=== PATIENT | male | born 1935 | race Caucasian/White ===

== ENCOUNTER 2022-08-01 08:20 | Outpatient (CLI) | payer OTHER, SELFPAY ==
--- NOTE | 2022-08-01 11:00 | NEURO_ITS ---
Impression: # Complains of numbness of upper and lower extremities of long duration. 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 # Superimposed mild Carpal Tunnel Syndrome. # Abnormal needle/EMG exam with decreased motor unit potentials without fibrillations and lower extremity more than upper extremity decrement. Nerve Conduction Studies Anti Sensory Summary Table Stim Site NR Peak (ms) P-T Amp (?V) Site1 Site2 Delta-P (ms) Dist (cm) Cali (m/s) Left Median Anti Sensory (2-3nd Digit) Wrist 5.4 14.0 Wrist 2-3nd Digit 5.4 14.0 26 Wrist 5.6 17.3 Wrist 2-3nd Digit 5.4 14.0 26 Right Median Anti Sensory (2-3nd Digit) Wrist 7.5 3.4 Wrist 2-3nd Digit 7.5 14.0 19 Wrist 7.6 5.5 Wrist 2-3nd Digit 7.5 14.0 19 Left Radial Anti Sensory (Base 1st Digit) NO RESPONSE Wrist NR Wrist Base 1st Digit 0.0 Right Radial Anti Sensory (Base 1st Digit) Wrist 2.0 9.9 Wrist Base 1st Digit 2.0 0.0 Left Sup Fibular Anti Sensory (Ant Lat Mall) NO 14 cm NR 14 cm Ant Lat Mall 16.0 Right Sup Fibular Anti Sensory (Ant Lat Mall) NO RESPONSE 14 cm NR 14 cm Ant Lat Mall 16.0 Left Sural Anti Sensory (Lat Mall) NO RESPONSE Calf NR Calf Lat Mall 16.0 Right Sural Anti Sensory (Lat Mall) NO RESPONSE Calf NR Calf Lat Mall 16.0 Left Ulnar Anti Sensory (5th Digit) Wrist 3.6 17.5 Wrist 5th Digit 3.6 14.0 39 Right Ulnar Anti Sensory (5th Digit) Wrist 3.7 22.5 Wrist 5th Digit 3.7 14.0 38 Motor Summary Table Stim Site NR Onset (ms) O-P Amp (mV) Site1 Site2 Delta-0 (ms) Dist (cm) Cali (m/s) Left Median Motor (Abd Poll Brev) Wrist 6.5 2.8 Elbow Wrist 6.3 30.0 48 Elbow 12.8 2.7 Right Median Motor (Abd Poll Brev) Wrist 5.0 2.4 Elbow Wrist 9.1 31.0 34 Elbow 14.1 2.3 Left Peroneal Motor (Vastus Med) NO RESPONSE Ankle NR Popit NR Right Peroneal Motor (Vastus Med) NO RESPONSE Ankle NR Popit NR Left Tibial Motor (Abd Hutton Brev) NO RESPONSE Ankle NR Knee NR Right Tibial Motor (Abd Hutton Brev) NO RESPONSE Ankle NR Knee NR Left Ulnar Motor (Abd Dig Minimi) Wrist 3.0 3.7 A Elbow Wrist 5.8 30.0 52 A Elbow 8.8 1.8 Right Ulnar Motor (Abd Dig Minimi) Wrist 3.5 7.3 A Elbow Wrist 6.2 30.0 48 A Elbow 9.7 4.6 F Wave Studies NR F-Lat (ms) L-R F-Lat (ms) Left Median (Mrkrs) (Abd Poll Brev) DISPERSED RESPONSE NR Right Median (Mrkrs) (Abd Poll Brev) DISPERSED RESPONSE NR Left Peroneal (Mrkrs) (EDB) NO RESPONSE NR Right Peroneal (Mrkrs) (EDB) NO RESPONSE NR Left Tibial (Mrkrs) (Abd Hallucis) NO RESPONSE NR Right Tibial (Mrkrs) (Abd Hallucis) NO RESPONSE NR Left Ulnar (Mrkrs) (Abd Dig Min) 34.44 0.76 Right Ulnar (Mrkrs) (Abd Dig Min) 35.20 0.76 EMG Side Muscle Nerve Root Ins Act Fibs Amp Dur Recrt Comment Right 1stDorInt Ulnar C8-T1 Nml Nml Decr >12ms Reduced Right Ext Indicis Radial (Post Int) C7-8 Nml Nml Decr >12ms Reduced Right Ext Digitorum Radial (Post Int) C7-8 Nml Nml Decr >12ms Reduced Right BrachioRad Radial C5-6 Nml Nml Decr >12ms Reduced Righ
== END 2022-08-01 08:21 | disposition home or self-care (01) ==
PROVIDERS: PCP Family Medicine; Visit Provider Physician Assistant Medical
DX: R20.2 Paresthesia of skin (principal); G56.00 Carpal tunnel syndrome, unspecified upper limb
CPT/HCPCS: 95886; 95913

== ENCOUNTER 2023-08-07 08:07 | Outpatient (CLI) | payer OTHER, SELFPAY ==
--- NOTE | 2023-08-07 08:30 | ECG_ITS ---
Test Date: 2023-08-07 08:28:34 Measurements Intervals Urich Rate: 53 P: 85 AR: 219 QRS: -47 QRSD: 100 T: 26 QT: 436 QTc: 411 Interpretive Statements SINUS BRADYCARDIA WITH FIRST DEGREE AV BLOCK WITH OCCASIONAL SUPRAVENTRICULAR PREMATURE COMPLEXES LEFT ANTERIOR FASCICULAR BLOCK [QRS AXIS <= -45, QR IN I, RS IN II] No previous ECG available for comparison Electronically Signed On 08-07-2023 12:10:49 CDT by Ricki Siu M.D.
== END 2023-08-07 08:08 | disposition home or self-care (01) ==
LOC: ANHSURGERY 08:12
PROVIDERS: PCP Physician Assistant Medical; Visit Provider Urology
DX: Z01.818 Encounter for other preprocedural examination (principal); E78.5 Hyperlipidemia, unspecified; I44.0 Atrioventricular block, first degree; I44.4 Left anterior fascicular block
CPT/HCPCS: 93005

== ENCOUNTER 2023-08-10 10:55 | Outpatient (CLI) | payer OTHER, SELFPAY ==
--- NOTE | 2023-08-10 13:45 | NEURO_ITS ---
Nerve Conduction Studies Anti Sensory Summary Table Stim Site NR Peak (ms) P-T Amp (?V) Site1 Site2 Delta-P (ms) Dist (mm) Cali (m/s) Left Radial Anti Sensory (Base 1st Digit) Wrist 2.5 13.6 Wrist Base 1st Digit 2.5 0 Right Radial Anti Sensory (Base 1st Digit) Wrist 2.8 7.3 Wrist Base 1st Digit 2.8 110 39 Left Sup Peroneal Anti Sensory (Ant Lat Mall) NO RESPONSE Calf NR Calf Ant Lat Mall 160 Right Sural Anti Sensory (Lat Mall) NO RESPONSE Calf NR Calf Lat Mall 120 Motor Summary Table Stim Site NR Onset (ms) O-P Amp (mV) Site1 Site2 Delta-0 (ms) Dist (mm) Cali (m/s) Right Fibular TA Motor (Tib Ant) Fib Head 3.5 1.1 Poplit Fib Head 2.0 80 40 Poplit 5.5 1.4 Left Median Motor (Abd Poll Brev) Wrist 6.8 4.6 Wrist Wrist 0.0 80 Elbow 12.3 4.3 Wrist Elbow 5.5 230 42 Right Median Motor (Abd Poll Brev) Wrist 10.1 2.7 Wrist Wrist 0.0 80 Elbow 14.8 2.6 Wrist Elbow 4.7 220 47 ELB/ADM 15.7 2.9 Elbow ELB/ADM 0.9 50 56 Left Peroneal Motor (Ext Dig Brev) Ankle 6.5 0.1 Ankle Ext Dig Brev 6.5 80 12 B Fib 14.3 0.1 B Fib Ankle 7.8 280 36 Popit 17.3 0.2 Popit B Fib 3.0 90 30 Right Peroneal Motor (Ext Dig Brev) NO RESPONSE Ankle NR Ankle Ext Dig Brev 70 Popit NR Popit Ankle 360 Left Tibial Motor (Abd Hutton Brev) Ankle 5.9 0.1 Ankle Ankle 0.0 100 Knee 19.4 0.1 Ankle Knee 13.5 380 28 Right Tibial Motor (Abd Hutton Brev) Ankle 5.5 0.1 Ankle Ankle 0.0 80 Knee 16.6 0.1 Ankle Knee 11.1 390 35 Left Ulnar Motor (Abd Dig Minimi) Wrist 3.3 7.0 Wrist Wrist 0.0 80 B Elbow 7.4 6.9 B Elbow Wrist 4.1 190 46 A Elbow 9.5 7.2 A Elbow B Elbow 2.1 80 38 Right Ulnar Motor (Abd Dig Minimi) Wrist 3.4 6.8 Wrist Wrist 0.0 0 B Elbow 7.6 6.5 B Elbow Wrist 4.2 220 52 A Elbow 9.1 6.3 A Elbow B Elbow 1.5 70 47 Comparison Summary Table Stim Site NR Onset (ms) Peak (ms) P-T Amp (?V) Site1 Site2 Cali (m/s) Dist (mm) Left Median/Ulnar Palm Comparison (Wrist - 8cm) Median Palm 2.6 3.1 10.8 Median Palm Wrist - 8cm 26 80 Ulnar Palm NR Ulnar Palm Wrist - 8cm 80 Right Median/Ulnar Palm Comparison (Wrist - 8cm) NO RESPONSE Median Palm NR Median Palm Wrist - 8cm 80 Ulnar Palm NR Ulnar Palm Wrist - 8cm 80 EMG Side Muscle Nerve Ins Act Fibs Psw Amp Dur Recrt Comment Right Deltoid Axillary Nml Nml Nml Nml Nml Nml Right Triceps Radial Nml Nml Nml Nml Nml Nml Right ExtCarUln Radial (Post Int) Nml Nml Nml Nml Nml Nml Right FlexPolLong Median (Ant Int) Nml Nml Nml Nml Nml Nml Right 1stDorInt Ulnar Nml Nml Nml Nml Nml Nml Right Abd Poll Brev Median Nml Nml Nml Incr >12ms +3 Right FlexDigProf Ulnar Nml Nml Nml Nml Nml Nml Left Deltoid Axillary Nml Nml Nml Nml Nml Nml Left Triceps Radial Nml Nml Nml Nml Nml Nml Left ExtCarUln Radial (Post Int) Nml Nml Nml Nml Nml Nml Left FlexPolLong Median (Ant Int) Nml Nml Nml Nml Nml Nml Left 1stDorInt Ulnar Nml Nml Nml Nml Nml Nml Left Abd Poll Long Radial (Post Int) Nml Nml Nml Incr >12ms +1 Left Abd Poll Brev Median Nml Nml Nml Incr >12ms +2 Left FlexDigProf Ulnar Nml Nml Nml Nml Nml Nml Right AntTibialis Dp Br Fibular Nml Nml 1+ Incr >12ms +1 Right GluteusMax InfGluteal Nml Nml Nml Nml Nml Nml Right VastusMed Femoral Nml Nml Nml Nml Nml Nml
== END 2023-08-10 10:56 | disposition home or self-care (01) ==
PROVIDERS: PCP Physician Assistant Medical; Visit Provider Student in an Organized Health Care Education/Training Program
DX: G62.9 Polyneuropathy, unspecified (principal); R76.8 Other specified abnormal immunological findings in serum
CPT/HCPCS: 95886; 95913

== ENCOUNTER 2023-08-16 01:05 | Day surgery (SDC) | payer OTHER, SELFPAY ==
[2023-07-30 15:38] VITALS: BMI 25.7
--- NOTE | 2023-07-30 16:23 | PC.NURSE ---
Report to the Outpatient Waiting Room, entrance under the green pavilion located off [facility], at time __7:15AM on date __08/16/23 . Planned Procedure Time: ___9:15AM . Time changes happen often and if your time is changed the preop area will call you the afternoon before. - You and your visitor will be asked to self-screen and do not enter if you have any COVID symptoms. - A mask is optional within the hospital at this time. Patients may have clear liquids (water, carbonated beverages, clear teas, apple juice) until 3 hours prior to surgery with a maximum of 20 ounces. - No food from midnight until time of surgery. Take the following medications with a SIP of water the morning of surgery: PREGABALIN DO NOT STOP ANY OF YOUR OTHER PRESCRIPTION MEDICATIONS PRIOR TO SURGERY ?EXCEPT THE FOLLOWING Medications to discontinue per physician ___HOLD CLOPIDOGREL (BLOOD THINNER) 7 DAYS PRE-OP PER DR CRUZ- LAST DOSE 08/08/23 HOLD ALL VITAMINS/SUPPLEMENTS 3 DAYS PRE-OP PER ANESTHESIA- LAST DOSE 08/12/23. Please no make-up, nail greek, hairspray, perfume, deodorant, or body powder the day of surgery. No jewelry (including any body piercings) or valuables the day of surgery, leave them at home. Please take a shower or bath the night before, or the morning of, surgery with an antibacterial soap. Wear comfortable, loose fitting clothing. - Jewelry must be removed prior to entering the operating room. Rings and piercings that are not removed may be cut off. - The hospital will not accept responsibility for valuables. - Please leave all valuables, including medications, at home the day of surgery. If you are going home after surgery, a licensed tour driver must drive you home. - NO public transportation without another adult if you receive anesthesia. - We recommend that an adult stay with you for 24 hours following discharge. - We also recommend that you do not drive, make important decision, drink alcoholic beverages, or take any drugs that were not prescribed by your health care provider for at least 24 hours after your discharge time. Follow any additional instructions given to you from your surgeon. If you or anyone in your household have experienced Covid symptoms in the past week, please notify your surgeon or the nurse liaison at the phone number below for possible testing. Telephone instructions given to ___PATIENT and asked if any additional questions and then verbalized understanding. Patient advised to call surgeon office or pre surgery nurse liaison [phone] if any additional questions.
--- NOTE | 2023-08-14 17:15 | PM.HPGS ---
History of Present Illness History of Present Illness Consent: Risks, benefits, and alternatives have been discussed and questions answered. Patient agrees to proceed with procedure. Chief complaint: right hydrocele Narrative: Daljit Raines is a 87 year old male who we have followed for several years with known BPH. Additionally, he has progressive swelling of his right hemiscrotum with an ultrasound showing a large right hydrocele. This is become uncomfortable and he now elects for right hydrocelectomy. He is aware of the risks including, but not limited to, adverse cardiopulmonary events, scrotal hematoma and recurrence of the hydrocele. Review of Systems Review of Systems: All systems reviewed & are unremarkable except as noted in HPI and below PMFSH Past Medical History Medical History Acute otitis externa of right ear Acute otitis media, right Allergies tested negative for allergies with Dr. May per patient Arthritis Cervical spondylosis Chronic inflammatory arthritis GERD (gastroesophageal reflux disease) Rheumatoid arthritis of cervical spine Seborrheic keratosis Spinal stenosis cervical and lumbar Stroke Vertigo Surgical History Surgical History Aftercare following left shoulder joint replacement surgery nov(2) Carpal tunnel syndrome on both sides Cataract Hernia Previous back surgery Family History Family History Sibling Cancer Sibling Cancer Mother Diabetes mellitus Heart disease Cerebrovascular accident Father Hypertension Cancer Social History Social History Smoking status: Never smoker Second hand tobacco smoke exposure: No Alcohol intake: current Drinks per week: 1 Substance use: never Substance use type: does not use Do You Feel Safe in your Home?: Yes Lack of Transportation: No Lack of Food: Never True Current Housing: I Have Housing Concerned About Future Housing: No Difficulty Paying Gas/Electric Bills: No Difficulty Paying for Meds: No Currently Unemployed: No Education: Grade School Difficulty w/ Childcare or Family Care: No Living arrangements: with family Additional living arrangements comments: Occupation/Education: retired Gender identity (if verbalized by the patient): Male Spiritual care concerns: No Agree to blood products: Yes Meds Home Medications and Allergies Home Medications Medication Instructions Recorded Confirmed Type cyanocobalamin (vitamin B-12) 500 500 mcg PO DAILY 07/05/20 08/06/23 History mcg tablet (B-12 DOTS) glucosamine 750 [id number] 1 tablet PO BID 07/05/20 08/06/23 History no1 644 mg-C 30 mg-mariluz 1 mg tablet (Osteo Bi-Flex Triple Strength) atorvastatin 40 mg tablet 40 mg PO DAILY #90 tabs 08/06/23 Rx clopidogrel 75 mg tablet 75 mg PO DAILY 08/06/23 08/06/23 History finasteride 5 mg tablet 5 mg PO DAILY 08/06/23 08/06/23 History naproxen sodium 220 mg tablet 220 mg PO BID PRN 08/06/23 08/06/23 History (Aleve) omeprazole 20 mg capsule,delayed 20 mg PO DAILY 08/06/23 08/06/23 History release pregabalin 25 mg capsule 25 mg PO BID #180 caps 08/06/23 08/06/23 Rx tamsulosin 0.4 mg capsule 0.4 mg PO DAILY 08/06/23 08/06/23 History Allergies Allergy/AdvReac Type Severity Reaction Status Date / Time No Known Allergies Allergy Verified 08/06/23 07:56 Exam Const: General: no acute distress Resp: Effort & Inspection: normal respiratory effort GI: Inspection: non-distended GI Palp: No abdominal tenderness and No Guarding due to palpation present (GI) Auscultation: normal bowel sounds : Scrotum: Hydrocele present and scrotal swelling Assessment and Plan Assessment and plan (1) Right hydrocele: Code(s):
[2023-08-16] VITALS (7 sets, daily range): BP systolic 121–155; BP diastolic 60–88; PULSE 46–72; RESP 10–20; TEMP 36.2–36.9; O2SAT 99–100
--- NOTE | 2023-08-16 05:58 | WPDHPUPDATE1 ---
History and Physical Update Update Date/Time: 08/16/23 05:58 History and Physical has been reviewed, including an updated exam of the patient. There are NO changes in the patient's condition. Risks, benefits, and alternatives have been discussed and questions answered. Patient agrees to proceed with procedure.
[2023-08-16] MEDS: LACTATED RINGERS 1,000 ML 30 ML IV CONT (07:30)
--- NOTE | 2023-08-16 07:56 | WPDANESEPPF ---
Anes - Initial Pre Proc Eval Procedure: Operation Date: 08/16/23 08:30 Proposed Procedures p Right Hydrocelectomy - Sharath Canada MD Date/Time: 08/16/23 07:56 Surgeon: Sharath Canada MD Pre Op Diagnosis: right hydrocele Patient Data Age: 87 Gender: M Height: 1.75 m Weight: 76.8 kg Last Vital Signs Temp 98.5 F 08/16/23 07:35 Pulse 52 L 08/16/23 07:35 Resp 16 08/16/23 07:35 BP 130/72 08/16/23 07:35 Pulse Ox 99 08/16/23 07:35 O2 Del Method Room Air 08/16/23 07:35 Allergies Allergy/AdvReac Type Severity Reaction Status Date / Time No Known Allergies Allergy Verified 08/16/23 07:32 Home Medications Medication Instructions Recorded Confirmed Type cyanocobalamin (vitamin B-12) 500 500 mcg PO DAILY 07/05/20 08/16/23 History mcg tablet (B-12 DOTS) glucosamine 750 [id number]-[id number]-cvs 1 tablet PO BID 07/05/20 08/16/23 History no1 644 mg-C 30 mg-mariluz 1 mg tablet (Osteo Bi-Flex Triple Strength) atorvastatin 40 mg tablet 40 mg PO DAILY #90 tabs 08/06/23 08/16/23 Rx clopidogrel 75 mg tablet 75 mg PO DAILY 08/06/23 08/16/23 History finasteride 5 mg tablet 5 mg PO DAILY 08/06/23 08/16/23 History naproxen sodium 220 mg tablet 220 mg PO BID PRN Pain 08/06/23 08/16/23 History (Aleve) omeprazole 20 mg capsule,delayed 20 mg PO DAILY 08/06/23 08/16/23 History release pregabalin 25 mg capsule 25 mg PO BID #180 caps 08/06/23 08/16/23 Rx tamsulosin 0.4 mg capsule 0.4 mg PO DAILY 08/06/23 08/16/23 History Patient hx anesthesia problems: none Family hx anesthesia problems: none Results Review: All pre-operative results and documents have been reviewed as part of the pre-operative evaluation. [facility] Past Medical History Medical History Acute otitis externa of right ear Acute otitis media, right Allergies tested negative for allergies with Dr. May per patient Arthritis Cervical spondylosis Chronic inflammatory arthritis GERD (gastroesophageal reflux disease) Rheumatoid arthritis of cervical spine Seborrheic keratosis Spinal stenosis cervical and lumbar Stroke Vertigo Surgical History Surgical History Aftercare following left shoulder joint replacement surgery nov(2) Carpal tunnel syndrome on both sides Cataract Hernia Previous back surgery Family History Family History Sibling Cancer Sibling Cancer Mother Diabetes mellitus Heart disease Cerebrovascular accident Father Hypertension Cancer Social History Social History Smoking status: Never smoker Second hand tobacco smoke exposure: No Alcohol intake: current Drinks per week: 1 Substance use: never Substance use type: does not use Do You Feel Safe in your Home?: Yes Lack of Transportation: No Lack of Food: Never True Current Housing: I Have Housing Concerned About Future Housing: No Difficulty Paying Gas/Electric Bills: No Difficulty Paying for Meds: No Currently Unemployed: No Education: Grade School Difficulty w/ Childcare or Family Care: No Living arrangements: with family Additional living arrangements comments: Occupation/Education: retired Gender identity (if verbalized by the patient): Male Spiritual care concerns: No Agree to blood products: Yes Anes - Eval Final PreProcedure Day of Procedure 08/16/23 07:56 Patient weight: normal Heart: regular rate and rhythm Lungs: clear to auscultation Airway: Mallampati scale and special considerations (Missing many upper teeth, none loose. Edentulous lower. ) Neurological: alert and oriented Last oral intake: >/= 8 hours ASA classification: III Emergent: no Anesthetic plan: proceed Anesthesia type and monitoring: gener
[2023-08-16] MEDS: ceFAZolin 2 GM/D5W 50 ML 2 GM/50 ML BAG IVPB (08:08)
[2023-08-16] MEDS: LIDO 1%/EPINEPHRINE/PF 1:200,000 30 ML VIAL XX (08:39)
--- NOTE | 2023-08-16 08:39 | W.PM.PROC2 ---
Procedure Note - Detailed Date of Procedure 08/16/23 Pre-op Diagnosis Right hydrocele Post-op Diagnosis Same Procedure Performed Right hydrocelectomy Surgeon Sharath Canada MD Anesthesia General Description of Procedure The patient was brought to the operative suite where he was prepped and draped in routine sterile fashion while in a supine position after the uneventful induction of a general LMA anesthetic. An incision was made in the median raphe of the scrotum and dissection was carried into the right tunica vaginalis. Clear, straw-colored fluid was drained. The testicle was examined and found to be both visibly and palpably normal. The tunica was everted in a bottle-neck fashion using a running 4-0 chromic. The testicle was restore returned to an orthotopic positioned. The dartos muscle was closed with a running 4-0 chromic and the skin was likewise closed with a running 4-0 chromic. Estimated blood loss throughout this procedure was 5cc . Patient tolerated the procedure well and was taken to the recovery room in good condition. Drains No Packing No Pathology None sent
== END 2023-08-16 10:12 | disposition home or self-care (01) ==
PROVIDERS: PCP Physician Assistant Medical; Visit Provider Urology
PROC: (CPT 55040; principal; 2023-08-16 08:30)
DX: N43.3 Hydrocele, unspecified (principal); N40.0 Benign prostatic hyperplasia without lower urinary tract symptoms; M06.88 Other specified rheumatoid arthritis, vertebrae; M47.812 Spondylosis without myelopathy or radiculopathy, cervical region; M48.02 Spinal stenosis, cervical region; M48.061 Spinal stenosis, lumbar region without neurogenic claudication; Z86.73 Personal history of transient ischemic attack (TIA), and cerebral infarction without residual deficits; Z79.02 Long term (current) use of antithrombotics/antiplatelets
CPT/HCPCS: 55060; 93005; J0690; J1100; J2405; J2704; J3010; J7120

== ENCOUNTER 2024-06-25 01:27 | Day surgery (SDC) | payer OTHER, SELFPAY ==
--- NOTE | 2024-06-06 14:16 | PC.NURSE ---
Report to the Outpatient Waiting Room, entrance under the green pavilion located off [facility], at time _9:30 AM on date _06/25/24 . Planned Procedure Time: _11:30 AM .? Time changes happen often and if your time is changed the preop area will call you the afternoon before. - You and your visitor will be asked to self-screen and do not enter if you have any COVID symptoms. Please call surgeon if you need to reschedule. - A mask is optional within the hospital at this time. NOTHING TO EAT OR DRINK 8 HOURS PRIOR TO SURGERY PER DR BOWDEN Take only the following medications with a SIP of water on the morning of surgery: ___DILTIAZEM,PREGABALIN DO NOT STOP ANY OF YOUR OTHER PRESCRIPTION MEDICATIONS PRIOR TO SURGERY EXCEPT THE FOLLOWING Hold all vitamins and supplements for 3 days per anesthesiologist.LAST DOSE 06/21/24 Medications to discontinue per physician ELIQUIS PER DR KIMBALL Please no make-up, nail tunisian, hairspray, perfume, deodorant, or body powder the day of surgery.? No jewelry (including any body piercings) or valuables the day of surgery, leave them at home.? Please take a shower or bath the night before, or the morning of, surgery with an antibacterial soap.? Wear comfortable, loose fitting clothing.? Children are encouraged to wear pajamas. - Jewelry must be removed prior to entering the operating room.? Rings and piercings that are not removed may be cut off. - The hospital will not accept responsibility for valuables.? - Please leave all valuables, including medications, at home the day of surgery. If you are going home after surgery, a licensed driver education instructor must drive you home.? - NO public transportation without another adult if you receive anesthesia. - We recommend that an adult stay with you for 24 hours following discharge. - We also recommend that you do not drive, make important decision, drink alcoholic beverages, or take any drugs that were not prescribed by your health care provider for at least 24 hours after your discharge time. For Pediatric surgeries, we recommend two adults accompany the child home. Follow any additional instructions given to you from your surgeon. Telephone instructions given to __PATIENT and asked if any additional questions and then verbalized understanding. Patient advised to call surgeon office or pre surgery nurse liaison [phone] if any additional questions.
[2024-06-06 14:34] VITALS: BMI 25.1
--- OUTSIDE RECORDS SUMMARY | 2024-06-25 01:30 | XMS_ITS | Clinical Summary ---
Author Organization [facility] Address [address] [place] [phone] Care Team Providers Care Dispensary Technician Name Role Phone Marlene Spivey Primary Care Provider [phone] Allergies No known active allergies Medications clopidogreL (PLAVIX) 75 mg tabletIndications:C erebral Thromboembolism Prevention Take 1 tablet (75 mg total) by mouth daily Active atorvastatin (LIPITOR) 40 mg tablet Take 1 tablet (40 mg total) by mouth daily Active omeprazole (PriLOSEC) 20 mg capsuleIndications: Stress Ulcer Prophylaxis Take 1 capsule (20 mg total) by mouth daily Active finasteride (PROSCAR) 5 mg tabletIndications:b enign prostatic hyperplasia with lower urinary tract sx Take 1 tablet (5 mg total) by mouth daily Active tamsulosin (FLOMAX) 0.4 mg extended release capsuleIndications: benign prostatic hyperplasia with lower urinary tract sx 1 capsule (0.4 mg total) Active amoxicillin 500 mg capsuleIndications: Prophylaxis, Medical 2,000 mg 4 capsules 1 hour prior to dental appointment 07/05/19 22 Active doxazosin (CARDURA) 4 mg tablet 4 mg daily 05/02/19 19 Active fluticasone propionate (FLONASE) 50 mcg/actuation nasal spray USE 2 SPRAYS INTO EACH NOSTRIL EVERY DAY 06/08/19 22 Active cyanocobalamin (Vitamin B-12) 500 mcg tablet 02/10/20 20 Active simvastatin (ZOCOR) 40 mg tablet Take 40 mg by mouth nightly 05/02/19 19 Active amoxicillin-clavula nan (AUGMENTIN) 875-125 mg per tablet Take 1 tablet by mouth 2 (two) times a day 10/11/19 22 Active meclizine (ANTIVERT) 25 mg tablet TAKE 1 TABLET BY MOUTH THREE TIMES A DAY NEEDED FOR DIZZINESS 10/20/19 22 Active ofloxacin (FLOXIN) 0.3 % otic solution INSTILL 10 DROP INTO EACH EAR DAILY FOR 7 DAYS 10/12/19 22 Active pregabalin (LYRICA) 25 mg capsule Take 1 capsule (25 mg total) by mouth nightly 06/22/19 23 Active Active Problems Problem Noted Date Diagnosed Date Degeneration of intervertebral disc 08/16/2021 Degenerative joint disease of hand 08/16/2021 Primary localized osteoarthrosis of shoulder reg ion 08/16/2021 Arthropathy of hand 08/16/2021 Osteoarthritis of knee 08/16/2021 Disorder of skin of trunk 08/16/2021 Failure of right total hip arthroplasty, 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 Pain in joint of right hip 04/22/2021 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 01/02/2020 Low back pain 11/05/2018 Left groin pain 07/31/2018 Cervical pain (neck) 04/02/2017 Shoulder pain, left 03/15/2017 Cerebral infarction 04/16/2014 Essential (primary) hypertension 04/16/2014 Glossopyrosis 06/12/2013 Candidiasis of mouth 05/15/2013 Immunizations Immunization Administration Dates Next Due Influenza, Quad, Adjuvantate d, Intramuscular 11/13/2019 Influenza, Quadrivalent, Hig h Dose, Preservative Free, Intrr 11/01/2020 Influenza, Trivalent, High D ose, Split, Preservative Free, Intramuscular 12/07/2018,11/16/2017,11/13/2017 Influenza, Trivalent, IM (MDV) 11/16/2016,2011 Pneumococcal Conjugate PCV 13 05/30/2018 Tdap 06/18/2018 ZOSTER Recombinant 12/09/2019,09/24/2019 Surgical History Surgery Date Site/Laterality Comments BACK SURGERY CARPAL TUNNEL RELEASE Bilateral EYE SURGERY JOINT REPLACEMENT Right right hip HERNIA REPAIR Double hernia FLUORO GUIDED INJECTION SHOULDER RIGHT 10/22/2019 Ri ght FLUORO GUIDED ASPIRATION SHOULDER LEFT 02/29/2024 Le ft Medical History Medical History Date Comments Arthritis Stroke (HCC) 2014-on plavix Sleep apnea History of transfusion Family History Medical History Relation Name Comments Cancer Brother Family history of malignant neoplasm - (Added by TW Conv) Cancer Sister Anesthesia problems Neg Hx Relation Name Status Comments Brother Sister Social History Tobacco Use Types Packs/Day Years Used Date Smoking Tobacco: Never AUDIT-C Answer Date Recorded Q1: How often do you have a drink containing alc ohol? Monthly or less 07/29/2021 Q2: How many drinks containi ng alcohol do you have on a typical day when you are drinking? 1 or 2 07/29/2021 Q3: How often do you have si x or more drinks on one occasion? Never 07/29/2021 Sex and Gender Information Value Date Recorded Sex Assigned at Not on file Legal Sex Male 10:56 AM CONVEYOR CONSOLE OPERATOR Gender Identity Not on file Sexual Orientation Not on file Obstetrics History Last Filed Vital Signs Vital Sign Reading Time Taken Comments Blood Pressure 159/89 02/29/2024 8:35 AM CONVEYOR CONSOLE OPERATOR Pulse 108 02/29/2024 8:35 AM CONVEYOR CONSOLE OPERATOR Temperature 36.7 C (98.1 F) 02/29/2024 8:35 AM CONVEYOR CONSOLE OPERATOR Respiratory Rate 16 02/29/2024 8:35 AM CONVEYOR CONSOLE OPERATOR Oxygen Saturation 97% 02/29/2024 8:35 AM CONVEYOR CONSOLE OPERATOR Inhaled Oxygen Concentration - - Weight 79.4 kg (175 lb) 02/11/2024 11:33 AM CONVEYOR CONSOLE OPERATOR Height 175.3 cm (5' 9 ) 02/11/2024 11:33 AM CONVEYOR CONSOLE OPERATOR Body Mass Index 25.84 02/11/2024 11:33 AM CONVEYOR CONSOLE OPERATOR Plan of Treatment Health Maintenance Due Date Last Done Comments Depression Screening 1935 Hepatitis B Screening 1953 Well Visit 65+ 2001 Pneumococcal vaccine 65+ (2 of 2 - PPSV23) 05/31/2019 05/30/2018 Fall Risk Assessment 07/31/2022 07/31/2021 Covid-19 Vaccine ( - 2023-2 5 season) 2023 12/17/2020, 04/27/2020, 03/25/2020 Influenza Vaccine (Season Ended) 2024 11/01/2020, 11/13/2019, 12/07/2018, Additional history exists DTaP/Tdap/Td Vaccine (2 - Td or Tdap) 06/18/2028 06/18/2018 Zoster Vaccine Completed 12/09/2019, 09/24/2019 Medical Devices Implanted Type Area Pastry Cook Device Identifier Shelf Expiration Date Model / Serial / Lot Lens Lens Bilater al: Eye Other - See Comments- [id number] Implanted:07/06 (Quantity not on file) Other - see comments Right: Hip [employer] 46mm Modular Dual Mobility Primary Hip F Liner Acetabular Cocr [id number] - Sna - [id number] Implanted:Qty: 1 on 07/29/2021 by Arturo Brown MD at [facility] Other - see comments Right: Hip [employer] [id number] 03/21/2026 [id number] / NA / [id number] Description:Implant pause pe rformed Synthes 1.7mm 750mm Crimp Cable Orthopedic Titanium Cocr Sterile Cervical 611.105.01s - Sna - [id number] Implanted:Qty: 1 on 07/29/2021 by Arturo Brown MD at [facility] Other - see comments Right: Hip Synthes I 11/18/2024 611.105. 01S / NA / [id number] Description:Implant pause pe rformed [employer] [place] 2mm Set Hip Cable/Sleeve Orthopedic Vitallium 6704-0-520 - Sna - [id number] Implanted:Qty: 1 on 07/29/2021 by Arturo Brown MD at [facility] Other - see comments Right: Hip [employer] [id number] 05/20/2025 6704-0-5 20 / NA / [id number] Description:Implant pause pe rformed [employer] Corail 210mm 43.2mm Revision Hip 135d 16 High Offset Trapezoid [id number] - Sna - [id number] Implanted:Qty: 1 on 07/29/2021 by Arturo Brown MD at [facility] Other - see comments Right: Hip [employer] [id number] 07/19/2024 [id number] / NA / [id number] Description:Implant pause pe rformed [employer] Liner Acetabular Hip Adm Mdm X3 28/52mm Polyethylene 0 Degree 7236-2-852 - Sna - [id number] Implanted:Qty: 1 on 07/29/2021 by Arturo Brown MD at [facility] Other - see comments Right: Hip [employer] [id number] 11/04/2025 7236-2-8 52 / NA / [id number] Description:Implant pause pe rformed Explanted Type Area Pastry Cook Device Identifier Shelf Expiration Date Model / Serial / Lot [employer] Femoral Stem Explanted:Qty : 1 on 07/29/2021 by Arturo Brown MD at [facility] Other - see comments Right: Hip [employer] / NA / Description:Pre-existing imp lant from 2009 from another facility and surgeon. Now removed for revision. Implant disposed of. [employer] Liner Explanted:Qty : 1 on 07/29/2021 at [facility] Right: Hip [employer] / NA / Description:Pre-existing imp lant from 2009 from another facility and surgeon. Now removed for revision. Implant disposed of. Michelle Head Explanted:Qty : 1 on 07/29/2021 at [facility] Right: Hip [employer] / NA / Description:Pre-existing imp lant from 2009 from another facility and surgeon. Now removed for revision. Implant disposed of. [place] [address] [facility] Advance Directives For more information, please contact: [phone] * Full Code (Latest Code Status on File) Date Activated Date Inactivated Comments 07/29/2021 11:45 AM 07/31/2021 4:09 PM * Full Code Date Activated Date Inactivated Comments 07/27/2021 4:13 AM 07/29/2021 11:45 AM Healthcare Agents on File Name Relationship Healthcare Agent Relationship Communication Gretchen Raines Spouse Health Care Agent Karmen Cordoba Daughter First Alternate Health Care Agent Care Teams Dispensary Technician Relationship Specialty Start Date End Date Marlene Spivey PA [address] [place] [id number] PCP - General Physician Waiter/Waitress First Class 01/14/24
--- OUTSIDE RECORDS SUMMARY | 2024-06-25 01:30 | XMS_ITS | Clinical Summary ---
Author Organization [facility] Address [address] [place] [address] Care Team Providers Care Private Branch Exchange Repairer Name Role Phone Marlene Spivey Primary Care Provider [phone] Allergies No known active allergies Medications atorvastatin 40 MG tablet Take 1 tablet (40 mg total) by mouth daily. 3 9 Active finasteride 5 MG tablet 1 tablet (5 mg total) daily. 1 9 Active omeprazole 20 MG capsule Take 1 capsule (20 mg total) by mouth. 6 Active pregabalin (LYRICA) 25 MG capsule Take 1 capsule (25 mg total) by mouth 2 (two) times daily. Active tamsulosin (FLOMAX) 0.4 MG Cap Take 1 capsule (0.4 mg total) by mouth daily. Active vitamin B-12 (CYANOCOBALAMIN ) 500 MCG tablet Take 1 tablet (500 mcg total) by mouth daily. Active TIADYLT ER 120 MG 24 hr capsule Take 1 capsule (120 mg total) by mouth daily. 4 Active clopidogrel (PLAVIX) 75 MG tablet Take 1 tablet (75 mg total) by mouth daily. 30 tablet 2 5 Active apixaban (ELIQUIS) 5 MG tablet Take 1 tablet (5 mg total) by mouth 2 (two) times daily. 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 - Today 04/28/2024 11:15 AM CDT Telephone [facility], [address] [address] Amadeo Moreno MD Holter Monitor 04/21/2024 10:45 AM VOCAL MUSIC INSTRUCTOR Office Visit [facility], [address] [address] Amadeo Moreno MD Atrial Flutter (Follow up) 04/21/2024 Travel from Last 3 Months Social History Tobacco Use Types Packs/Day Years Used Date Smoking Tobacco: Former Smokeless Tobacco: Never [facility] PPTVities Answer Date Recorded In the past 12 months has [employer], gas, oil, or water [employer] threatened to shut off services in your home? No 01/24/2024 Humiliation, Afraid, Rape, and Kick questionnair e Answer Date Recorded Within the last year, have y ou been afraid of your partner or ex-partner? No 01/24/2024 Within the last year, have y ou been humiliated or emotionally abused in other ways by your partner or ex-partner? No Within the last year, have y ou been kicked, hit, slapped, or otherwise physically hurt by your partner or ex-partner? No 01/24/2024 Within the last year, have y ou been raped or forced to have any kind of sexual activity by your partner or ex-partner? No 01/24/2024 Overall Financial Resource Strain (CARDIA) Answe r Date Recorded How hard is it for you to pa y for the very basics like food, housing, medical care, and heating? Not hard at all 01/24/2024 Hunger Vital Sign Answer Date Recorded Within the past 12 months, y ou worried that your food would run out before you got the money to buy more. Never true 01/24/20 24 Within the past 12 months, t he food you bought just didn't last and you didn't have money to get more. Never true 01/24/2024 PRAPARE - Transportation Answer Date Re corded In the past 12 months, has l ack of transportation kept you from medical appointments or from getting medications? No 06/2023 In the past 12 months, has l ack of transportation kept you from meetings, work, or from getting things needed for daily living? No 01/24/2024 Housing Stability Vital Sign Answer Bandar e Recorded In the last 12 months, was t here a time when you were not able to pay the mortgage or rent on time? No 01/24/2024 In the past 12 months, how m any times have you moved where you were living? 1 01/24/2024 At any time in the past 12 m [facility], were you homeless or living in a residential (including now)? No 01/24/2024 Sex and Gender Information Value Date Recorded Sex Assigned at Male 03/20/2024 11:11 AM VOCAL MUSIC INSTRUCTOR Legal Sex Male 7:08 PM CDT Gender Identity Not on file Sexual Orientation Not on file Last Filed Vital Signs Vital Sign Reading Time Taken Comments Blood Pressure 144/80 04/21/2024 10:41 AM VOCAL MUSIC INSTRUCTOR Pulse 65 04/21/2024 10:41 AM VOCAL MUSIC INSTRUCTOR Temperature 36.4 C (97.6 F) 03/20/2024 4:45 PM VOCAL MUSIC INSTRUCTOR Respiratory Rate 23 03/20/2024 6:55 PM VOCAL MUSIC INSTRUCTOR Oxygen Saturation 98% 04/21/2024 10:41 AM VOCAL MUSIC INSTRUCTOR Inhaled Oxygen Concentration - - Weight 80.3 kg (177 lb) 04/21/2024 10:41 AM VOCAL MUSIC INSTRUCTOR Height 175.3 cm (5' 9 ) 04/21/2024 10:41 AM VOCAL MUSIC INSTRUCTOR Body Mass Index 26.14 04/21/2024 10:41 AM VOCAL MUSIC INSTRUCTOR Plan of Treatment Upcoming Encounters Date Type Department Care Team (Late st Contact Info) Description 07/31/2024 9:15 AM CDT Office Visit [facility] [address] [place] [address] Radha Baum FNP [address] [facility] [address] [place] [address] 11/05/2024 11:15 AM CDT Office Visit [facility] [address] Amadeo Moreno MD [facility] [address] [place], [place] [id number] Health Maintenance Due Date Last Done Comments Annual Medicare Wellness Visit 2001 RSV Immunization or 60+ Years (1 - 1-dose 75+ series) 10/09/2011 Pneumococcal Vaccine: 50+ Years (2 of 2 - PPSV23) 07/25/2018 05/30/2018 COVID-19 Vaccine ( - 2023-2 5 season) 2023 PHQ-2 (Physician [place]) 02/20/2024 DTaP, Tdap and Td Vaccines ( 2 - Td or Tdap) 06/18/2028 06/18/2018 Zoster Vaccines Completed 12/09/2019, 09/24/2019 Meningococcal B Vaccine Aged Out No l onger eligible based on patient's age to complete this topic Meningococcal Vaccine Aged Out No yovani fede eligible based on patient's age to complete this topic RSV Immunizations Under 20 Months Aged Out No longer eligible b ased on patient's age to complete this topic Procedures Procedure Name Priority Date/Time Associated Diagnosis Comments MOBILE CONTINUOUS TELEMETRY Routine 06/04/2024 2:11 PM CDT Typical atrial flutter ([facility] HHS/HCC) ELECTROCARDIOGRAM (NON MIDMARK ACQUIRED) Routine 04/21/2024 10:49 AM VOCAL MUSIC INSTRUCTOR Typical atrial flutter ([facility] HHS/HCC) from Last 3 Months Results * CLINIC - [address] [facility] - Today (06/04/2024 2:11 PM CDT) Narrative [facility] - 06/04/2024 2:11 PM CDT [facility] [place] [place] [address] MORNING NEWS PRODUCER REPORT PATIENT NAME: Kamar Diallo : 1935 PCP: CLAU SHEIKH INTERPRETING PHARMACY INFORMATICS MANAGER: Amadeo Moreno MD INDICATION: Typical atrial flutter. Baseline Rhythm * The baseline rhythm was First Degree AV Block + Sinus Rhythm with heart rates ranged between 45 and 144 beats per minute, with average rate of 63 beats per minute. A-V Conduction * No Second Degree AV Block Type II. * No Third Degree AV Block. * No Pauses. Supraventricular Arrhythmia * There were 69,712 Supraventricular Ectopic beats with a burden of 3%. * 8 Supraventricular Tachycardia events - the longest episode was 10.2s on 05/21 04:45, and the fastest episode was 158 BPM on 05/12 05:25. Ventricular Arrhythmia * There were 2,762 Ventricular Ectopic beats with a burden of <1%. * No Ventricular Tachycardia. Atrial Fibrillation * No Atrial Fibrillation. Patient Triggered Events * 1 patient triggered events, no symptoms were specified. SUMMARY: No AF or flutter seen. Okay to stop anticoagulation. us Amadeo Moreno MD CV VASCULAR ORDERABLES Final Res ult [facility] * ELECTROCARDIOGRAM (04/21/2024 10:49 AM VOCAL MUSIC INSTRUCTOR) 04/21/2024 10:4 9 AM VOCAL MUSIC INSTRUCTOR Narrative [facility] - 04/22/2024 10:17 PM [facility], [facility] Test Date: 2024-04-21 Pat Name: KAMAR DIALLO Department: 112 Room: Gender: Male Retail Personal Banker: : 1935 Requested By: AMADEO MORENO Order Number: [id number] Reading MD: Jordy Richardson Measurements Intervals [place] Rate: 57 P: -80 DE: 170 QRS: -65 QRSD: 94 T: -7 QT: 424 QTc: 413 Interpretive Statements SINUS BRADYCARDIA LEFT AXIS DEVIATION Since prior tracing, sinus bradycardia now present L MUSIC INSTRUCTOR Procedure Note Jordy Richardson MD - 04/22/2024 Brynn Mullins [facility] Test Date: 2024-04-21 Pat Name: KAMAR DIALLO Department: 112 Room: Gender: Male Retail Personal Banker: : 1935 Requested By: AMADEO MORENO Order Number: [id number] Reading MD: Jordy Richardson Measurements Intervals [place] Rate: 57 P: -80 DE: 170 QRS: -65 QRSD: 94 T: -7 QT: 424 QTc: 413 Interpretive Statements SINUS BRADYCARDIA LEFT AXIS DEVIATION Since prior tracing, sinus bradycardia now present L MUSIC INSTRUCTOR us Amadeo Moreno MD PROCEDURES-ORDERABLE NO CHARGE F inal Result [facility] from Last 3 Months Insurance Advance Directives * Full Code (Latest Code Status on File) Date Activated Date Inactivated Comments 03/20/2024 4:51 PM 03/20/2024 11:44 PM * Full Code Date Activated Date Inactivated Comments 01/24/2024 7:08 PM 01/27/2024 2:26 PM Care Teams Private Branch Exchange Repairer Relationship Specialty Start Date End Date Marlene Spivey PA [address] [place] [id number] PCP - General PHYSICIAN LABOR EXPEDITER 06/21/23
--- OUTSIDE RECORDS SUMMARY | 2024-06-25 01:30 | XMS_ITS | Encounter Summary ---
Author Organization [facility] Address [address] [place] [address] Care Team Providers Care Sketch Artist Name Role Phone Tejinder Dodd MD Primary Care Provider Unava Armida Manning DO Primary Care Provider [phone] Marlene Spivey Primary Care Provider [phone] Encounter Details Date Type Department Care Team (Late st Contact Info) Description 12/17/2015 Abstract [facility] CONVERSION [address] [place] [address] , Generic ConversionMD Social History Tobacco Use Types Packs/Day Years Used Date Smoking Tobacco: Never Assessed Sex and Gender Information Value Date Recorded Sex Assigned at Male 03/20/2024 11:11 AM HEALTH AID Legal Sex Male 7:08 PM CDT Gender Identity Not on file Sexual Orientation Not on file documented as of this encounter Plan of Treatment Upcoming Encounters Date Type Department Care Team (Late Contact Info) Description 07/31/2024 9:15 AM CDT Office Visit [facility] [address] [place] [address] Radha Baum FNP [address] [place] [address] [address] [place] [address] 11/05/2024 11:15 AM CDT Office Visit [facility] [address] [place] [phone] Marcelle Moreno MD [address] [place] [address] documented as of this encounter Visit Diagnoses Not on filedocumented in this encounter Additional Health Concerns Infection Onset Date Last Indicated Resolved Time COVID-19 Rule Out 12/03/2023 12/03/2023 12/03/2023 8:37 AM CDT documented as of this encounter Care Teams Sketch Artist Relationship Specialty Start Date End Date Tejinder Dodd MD PCP - General INTERNAL MEDICINE 07/31/18 04/25/21 Armida Zabala DO PCP - General FAMILY PRACTICE 04/26/21 06/20/23 Marlene Spivey PA [facility] [place] [address] PCP - General PHYSICIAN CLOTH FINISHING RANGE OPERATOR 06/21/23 documented as of this encounter
--- OUTSIDE RECORDS SUMMARY | 2024-06-25 01:30 | XMS_ITS | Encounter Summary ---
Author Organization [facility] Address [address] [place] [address] Care Team Providers Care Textile Converter Name Role Phone Tejinder Dodd MD Primary Care Provider Unava Armida Manning DO Primary Care Provider [phone] Marlene Spivey Primary Care Provider [phone] Encounter Details Date Type Department Care Team (Late st Contact Info) Description 04/02/2013 Abstract [facility] CONVERSION [address] [place] [address] , Generic ConversionMD Social History Tobacco Use Types Packs/Day Years Used Date Smoking Tobacco: Never Assessed Sex and Gender Information Value Date Recorded Sex Assigned at Male 03/20/2024 11:11 AM HEALTH CAREERS INSTRUCTOR Legal Sex Male 7:08 PM CDT Gender Identity Not on file Sexual Orientation Not on file documented as of this encounter Plan of Treatment Upcoming Encounters Date Type Department Care Team (Late st Contact Info) Description 07/31/2024 9:15 AM CDT Office Visit [facility] [address] [place] [address] Radha Baum FNP [address] [place] [address] [address] [place] [address] 11/05/2024 11:15 AM CDT Office Visit [facility] [address] [place] [phone] Marcelle Moreno MD [address] [place] [address] documented as of this encounter Visit Diagnoses Not on filedocumented in this encounter Additional Health Concerns Infection Onset Date Last Indicated Resolved Time COVID-19 Rule Out 12/03/2023 12/03/2023 12/03/2023 8:37 AM CDT documented as of this encounter Care Teams Textile Converter Relationship Specialty Start Date End Date Tejinder Dodd MD PCP - General INTERNAL MEDICINE 07/31/18 04/25/21 Armida Zabala DO PCP - General FAMILY PRACTICE 04/26/21 06/20/23 Marlene Spivey PA [facility] [place] [address] PCP - General PHYSICIAN CLINICAL DIETICIAN 06/21/23 documented as of this encounter
--- OUTSIDE RECORDS SUMMARY | 2024-06-25 01:30 | XMS_ITS | Referral Summary ---
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 Gender Identity Not on file Sexual Orientation Not on file Last Filed Vital Signs Vital Sign Reading Time Taken Comments Blood Pressure 159/89 02/29/2024 8:35 AM PERINATAL EDUCATOR Pulse 108 02/29/2024 8:35 AM PERINATAL EDUCATOR Temperature 36.7 C (98.1 F) 02/29/2024 8:35 AM PERINATAL EDUCATOR Respiratory Rate 16 02/29/2024 8:35 AM PERINATAL EDUCATOR Oxygen Saturation 97% 02/29/2024 8:35 AM PERINATAL EDUCATOR Inhaled Oxygen Concentration - - Weight 79.4 kg (175 lb) 02/11/2024 11:33 AM PERINATAL EDUCATOR Height 175.3 cm (5' 9 ) 02/11/2024 11:33 AM PERINATAL EDUCATOR Body Mass Index 25.84 02/11/2024 11:33 AM PERINATAL EDUCATOR Plan of Treatment Not on file Medical Devices Implanted Type Area Dialysis Equipment Technician Device Identifier Shelf Expiration Date Model / Serial / Lot Lens Lens Bilater al: Eye Other - See Comments- [id number] Implanted:07/06 (Quantity not on file) Other - see comments Right: Hip [employer] 46mm Modular Dual Mobility Primary Hip F Liner Acetabular Cocr [id number] - Sna - [id number] Implanted:Qty: 1 on 07/29/2021 by Arturo Brown MD at [facility] Other - see comments Right: Hip [employer] [id number] 03/21/2026 [id number] / NA / [id number] Description:Implant pause pe rformed Synthes 1.7mm 750mm Crimp Cable Orthopedic Titanium Cocr Sterile Cervical 611.105.01s - Sna - [id number] Implanted:Qty: 1 on 07/29/2021 by Arturo Brown MD at [facility] Other - see comments Right: Hip Synthes I 11/18/2024 611.105. 01S / NA / [id number] Description:Implant pause pe rformed [employer] Jessica 2mm Set Hip Cable/Sleeve Orthopedic Vitallium 6704-0-520 - Sna - [id number] Implanted:Qty: 1 on 07/29/2021 by Arturo Borwn MD at [facility] Other - see comments Right: Hip [employer] [id number] 05/20/2025 6704-0-5 20 / NA / [id number] Description:Implant pause pe rformed [employer] Corail 210mm 43.2mm Revision Hip 135d 16 High Offset Trapezoid [id number] - Sna - [id number] Implanted:Qty: 1 on 07/29/2021 by Arturo Brown MD at [facility] Other - see comments Right: Hip [employer] [id number] 07/19/2024 [id number] / NA / [id number] Description:Implant pause pe rformed [employer] Liner Acetabular Hip Adm Mdm X3 28/52mm Polyethylene 0 Degree 7236-2-852 - Sna - [id number] Implanted:Qty: 1 on 07/29/2021 by Arturo Brown MD at [facility] Other - see comments Right: Hip [employer] [id number] 11/04/2025 7236-2-8 52 / NA / [id number] Description:Implant pause pe rformed Explanted Type Area Dialysis Equipment Technician Device Identifier Shelf Expiration Date Model / Serial / Lot [place] Femoral Stem Explanted:Qty : 1 on 07/29/2021 by Arturo Brown MD at [facility] Other - see comments Right: Hip [employer] / NA / Description:Pre-existing imp lant from 2009 from another facility and surgeon. Now removed for revision. Implant disposed of. Michelle Liner Explanted:Qty : 1 on 07/29/2021 at [facility] Right: Hip [employer] / NA / Description:Pre-existing imp lant from 2009 from another facility and surgeon. Now removed for revision. Implant disposed of. Michelle Head Explanted:Qty : 1 on 07/29/2021 at [facility] Right: Hip [employer] / NA / Description:Pre-existing imp lant from 2010 from another facility and surgeon. Now removed for revision. Implant disposed of. Insurance [facility] Advance Directives For more information, please contact: [phone] * Full Code (Latest Code Status on File) Date Activated Date Inactivated Comments 07/29/2021 11:45 AM 07/31/2021 4:09 PM * Full Code Date Activated Date Inactivated Comments 07/27/2021 4:13 AM 07/29/2021 11:45 AM Healthcare Agents on File Name Relationship Healthcare Agent Relationship Communication Gretchen Raines Spouse Health Care Agent Karmen Cordoba Daughter First Alternate Health Care Agent Care Teams Tetryl Blender Operator Relationship Specialty Start Date End Date Marlene Spivey PA [address] [place] [id number] PCP - General Physician Print Line Inspector 01/14/24
--- OUTSIDE RECORDS SUMMARY | 2024-06-25 01:31 | XMS_ITS | Continuity of Care Document ---
Author Organization [facility] Address [address] [place] [address] Phone Care Team Providers Care Vp Information Technology Name Role Phone Modesta Thomas PT Unavailable Unavailable Procedures Procedure Date Progress Note Therapeutic Exercise Neuromuscular Re-Ed Manual Therapy Therapeutic Exercise Therapeutic Activities Neuromuscular Re-Ed Manual Therapy Therapeutic Exercise Manual Therapy Therapeutic Exercise Therapeutic Activities Manual Therapy Therapeutic Exercise Neuromuscular Re-Ed Therapeutic Exercise Neuromuscular Re-Ed Manual Therapy PT Evaluation Low Complexity Therapeutic Exercise Manual Therapy Changing And Maintaining Body Position-C urrent Changing And Maintaining Body Position-G oal Advance Directives Directive Yes / No Effective Date File Name No Information Encounters Encounter Description Practice Location Reason(s) For Visit Diagnoses Date Provider Providers Copied on Encounter [facility], [place], [place], [id number], tel:[phone] [place] No Information 8 William Byers. . [facility], [place], [place], [id number], tel:[phone] [place] No Information Mar-1 2-201 8 Threlkeld Modesta. . [facility], [place], [place], [id number], tel:[phone] [place] No Information Apr-0 7-201 8 Threlkeld Modesta. . [facility], [place], [place], [id number], tel:[phone] [place] No Information Mar-0 5-201 8 Nelida Aaron. [address], [address], [place], [address], [place]. tel:[phone] [facility], [place], [place], [id number], tel:[phone] [place] No Information 8- 8 Threlkeld Modesta. . [facility] [facility], [place], [place], [id number], tel:[phone] [place] No Information 2 6- 8 Threlkeld Modesta. . [facility] [facility], [place], [place], [id number], tel:[phone] [place] No Information 9 8 Threlkeld Modesta. . [facility], [place], [id number], tel:[phone] [place] Other specified disorders of bone, shoulderPrimary osteoarthritis, left shoulderOther cervical disc degeneration, unsp cervical regionSpondylosis w/o myelopathy or radiculopathy, cervical regionOther specified dorsopathies, cervical regionStiffness of unspecified shoulder, not elsewhere classifiedAbnormal posture Mar- 6-201 8 Threlkeld Modesta. . Family History Family Member Type Diagnosis Age At Onset No Information Payers Payer name Insurance type Covered republican ID Authoriza timaliha(s) [place] [id number] [facility] [id number] Social History Type Description Quantity Date Captured Comments Sex Male Smoking Status No Information Chief Complaint And Reason For Visit No Information Reason For Referral Reason For Referral No Information History Of Present Illness Encounter Date Complaint History Of Prese nt Illness No Information Functional Status Date Functional Assessmen t No Information Instructions Date Instruction Additional Infor mation No Information Assessments Type Assessment Date No Information Patient Care Teams Name Effective Dates (start - stop) Status Members No Information
--- OUTSIDE RECORDS SUMMARY | 2024-06-25 01:31 | XMS_ITS | CONTINUITY OF CARE DOCUMENT ---
Author Name corrine castle Address Unknown Organization [facility] Address [address] [place] [address] [address] [place] [address] Phone [phone] Care Team Providers Care Gambling Cashier Name Role Phone corrine castle Unavailable Unavailable
--- OUTSIDE RECORDS SUMMARY | 2024-06-25 01:31 | XMS_ITS | Clinical Summary ---
Author Organization [facility] Address [address] [place] [address] Care Team Providers Care Tobacco Classer Name Role Phone Tejinder Dodd MD Primary Care Provider [phone] Source Comments [email or web address],non-owned Affiliates and Associated Physician Practices is amultiple site organization consisting of ambulatory clinics and hospital sitesin [place], [place], [place] and [place]. This disclosure is being madepursuant to the Care Everywhere program and may not contain all information available regarding this patient. Last updated 17.[email or web address] Medications * Be aware that medications may not be up to date on this document. Alwaysverify current medications with the patient. omeprazole (PRILOSEC) 20 MG capsule Take 20 mg by mouth DAILY. 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 Gender Identity Not on file Sexual Orientation Not on file Last Filed Vital Signs Vital Sign Reading Time Taken Comments Blood Pressure 132/62 09/23/2015 9:59 AM CDT Pulse 52 09/23/2015 9:59 AM CDT Temperature 36.6 C (97.9 F) 01/26/2014 10:00 AM IRONING MACHINE OPERATOR Respiratory Rate 16 04/16/2014 2:11 PM IRONING MACHINE OPERATOR Oxygen Saturation 97% 09/17/2014 10:16 AM CDT Inhaled Oxygen Concentration - - Weight 83.5 kg (184 lb) 09/23/2015 9:59 AM CDT Height 177.8 cm (5' 10 ) 09/23/2015 9:59 AM CDT Body Mass Index 26.4 09/23/2015 9:59 AM CDT Plan of Treatment Health Maintenance Due Date Last Done Comments DTAP/TDAP/TD VACCINES (1 - Tdap) 10/09/1954 PNEUMOCOCCAL VACCINE 50+ (1 of 1 - PCV) 1986 ZOSTER VACCINE (1 of 2) 1986 Respiratory Syncytial Virus (RSV) Vaccine Pt: or over 60 yrs (1 - 1-dose 75+ series) 10/09/2011 COVID-19 VACCINE ( - 2023-2 5 season) 2023 DEPRESSION SCREENING 02/20/2024 INFLUENZA VACCINE (Season Ended) 2024 HEPATITIS B VACCINE Aged Out No longe r eligible based on patient's age to complete this topic HIB VACCINE Aged Out No longer eligi ble based on patient's age to complete this topic HPV VACCINE Aged Out No longer eligi ble based on patient's age to complete this topic MENINGOCOCCAL (Group B) VACC INE SHARED DECISION-MAKING Aged Out No longer eligibl e based on patient's age to complete this topic MENINGOCOCCAL GROUPS A/C/Y/W VACCINE Aged Out No longer eligible b ased on patient's age to complete this topic Care Teams Tobacco Classer Relationship Specialty Start Date End Date Tejinder Dodd MD [address] [place] [id number] PCP - General 04/16/14
--- NOTE | 2024-06-25 06:52 | P.OP_ITS ---
Procedure Note - Detailed Date of Procedure 06/25/24 Pre-op Diagnosis Right Cubital and Carpal Tunnel Synd Post-op Diagnosis Same Procedure Performed right cubital tunnel release and revision open carpal tunnel release with tenosynovectomy and hypothenar fat pad flap Surgeon Juan Jose Cornejo MD Clinical Account Liaison marcos chiu pa-c Anesthesia MAC Description of Procedure INFORMED CONSENT: The patient was seen and examined and marked in the pre-op area.? The patient signed the consent form. PROCEDURE IN DETAIL:The patient taken back to OR on the stretcher in supine position. Time out performed with anesthesia, surgeon and staff agreeing on patient's name site and surgery to be performed SCDs were placed on the lower extremities and inflated. A tourniquet was placed on {right} upper extremity and antibiotics given IV After anesthesia administered sedation I injected {4}cc 1%lido with epi and 0.5% marcaine plain at the operative site The?{right upper extremity}?was prepped and draped in sterile fashion the??{right upper extremity} was? exsanguinated with Esmarch bandage and karen rniquet inflated to 250mmHg I proceeded with making a longitudinal incision in line with the ring finger in the proximal palm going obliquely across the volar wrist flexion crease and onto the forearm to create a radially based flap through skin and dermis with a 15 blade scalpel. Littler scissors were used to spread through subcutaneous tissue proximally down to the antebrachial fascia. The antebrachial fascia was incised and the median nerve was identified. As I elevated the skin of the palm and going through subcutaneous tissue identified a palmaris brevis muscle. Using bipolar cautery and Littler scissors this was reflected from its ulnar attachment. I continued with anterograde dissection of the nerve releasing scar tissue and potentially persistent transverse carpal ligament. The nerve was slightly atrophic in appearance and a significant amount constrictive tenosynovitis surrounded the nerve.. I proceeded with epineurolysis with Littler scissors. Upon doing this I was now able to visualize Vasa nervorum and the nerve had a healthier yellow appearance. I visualized both the main branch of the median nerve as well as the thenar branch which was protected throughout the procedure. A significant amount of oily synovitis was also encountered throughout the procedure. I Irrigated with normal saline. To help protect the nerve and reduce the risk of further direct line scar adherence to the skin I elevated an ulnarly based hypothenar fat pad flap with 15 blade and Littler scissors. This flap was advanced radially and able to cover the median nerve where the neuro lysis was performed. Skin was closed with 4-0 chromic suture. I next proceeded with making a longitudinal incision between two heads for flexor carpi ulnaris at end of {right} cubital tunnel with 15 blade scalpel.? Littler scissors were used to spread down to FCU fascia.? An incision was made in FCU fascia and ulnar nerve identified exiting cubital tunnel.? I proceeded with complete retrograde release of the cubital tunnel including 7cm proximal for the intermuscular septum.? The nerve appeared healthy with visible vaso nervorum.? There was no subluxation on full elbow range of motion. ? I irrigated with normal saline and closure with 4-0 monocryl for dermis and subcuticular. The incisions were covered with xeroform at hand and Dermabond at elbow, then 4x4s, zahida, and a posterior elbow and volar wrist splint for patient safety, security and comfort and secured with kenia bandages after the tourniquet was let down noting the hand was warm and well perfused.? Patient awaken from anesthesia and transferred to recovery in stable condition Complications - none EBL- 1cc Disposition - home in stable conditions Marcos Chiu pa-c was essential for positioning, retraction, closure and dressing placement [facility] Billing Surgery - Charge Forward: Surgery Billing ([id number] same for marcos adding modifier )
--- NOTE | 2024-06-25 06:52 | WPDHPUPDATE1 ---
History and Physical Update Update Date/Time: 06/25/24 06:52 Patient seen and examined in pre-operative holding area. No interval change in medical history or symptoms. Patient recalls previous discussion of benefits and alternatives to procedure. Continues to desire to proceed with right cubital tunnel release and right open carpal tunnel revisioin . Reviewed procedure, post-op expectations and risks including but not limited to bleeding, infection, injury to tendon/nerve/vessel, decreased hand function, stiffness, RSD, no change or worsening of symptoms. I discussed the possible use of assistants and their participation in the case. Patient stated understanding and signed the consent form wishing to proceed.
[2024-06-25 06:58] VITALS: BP 146/72; PULSE 62; RESP 18; TEMP 36.9; O2SAT 100
[2024-06-25] MEDS: LACTATED RINGERS 1,000 ML 30 ML IV CONT (07:20)
--- NOTE | 2024-06-25 08:10 | P.PNAN_ITS ---
Anes - Initial Pre Proc Eval Procedure: Operation Date: 06/25/24 09:00 Proposed Procedures p Revision Right Endoscopic Carpal Tunnel Release Possible Open, Right Cubital Tunnel Release - Juan Jose Cornejo MD Date/Time: 06/25/24 08:10 Surgeon: Juan Jose Cornejo MD Pre Op Diagnosis: Right Cubital and Carpal Tunnel Synd Patient Data Age: 88 Gender: M Height: 1.75 m Weight: 79.9 kg Last Vital Signs Temp 36.9 C 06/25/24 06:58 Pulse 62 06/25/24 06:58 Resp 18 06/25/24 06:58 BP 146/72 H 06/25/24 06:58 Pulse Ox 100 06/25/24 06:58 O2 Del Method Room Air 06/25/24 06:58 Allergies Allergy/AdvReac Type Severity Reaction Status Date / Time No Known Allergies Allergy Verified 06/25/24 07:27 Home Medications ?Medication ?Instructions ?Recorded ?Confirmed ?Type cyanocobalamin (vitamin B-12) 500 500 mcg PO DAILY 07/05/20 06/25/24 History mcg tablet (B-12 DOTS) atorvastatin 40 mg tablet 40 mg PO DAILY #90 tabs 01/15/24 06/25/24 Rx omeprazole 20 mg capsule,delayed 20 mg PO DAILY #90 caps 01/15/24 06/25/24 Rx release tamsulosin 0.4 mg capsule 0.4 mg PO DAILY #90 caps 01/15/24 06/25/24 Rx pregabalin 25 mg capsule 25 mg PO BID #180 caps 02/05/24 06/25/24 Rx apixaban 5 mg tablet (Eliquis) 5 mg PO BID #180 tabs 04/01/24 06/25/24 Rx diltiazem HCl 120 mg capsule,24 120 mg PO DAILY 04/14/24 06/25/24 History hr,extended release (Tiadylt ER) finasteride 5 mg tablet 5 mg PO DAILY #90 tabs 04/14/24 06/25/24 Rx tramadol 50 mg tablet 50 mg PO Q6H PRN pain #12 tabs 06/25/24 Rx Patient hx anesthesia problems: none Family hx anesthesia problems: none Results Review: All pre-operative results and documents have been reviewed as part of the pre- operative evaluation. [facility] Past Medical History Medical History Atrial flutter AAblation x2, Dr. Moreno / Dr Bella Neuropathy Renal mass Enlarging renal mass noted on CTA November 2023 Axillary lymphadenopathy (~11/2023) Lymphadenopathy, mediastinal (~11/2023) Peripheral neuropathy Rheumatoid arthritis of cervical spine Chronic inflammatory arthritis Spinal stenosis cervical and lumbar Vertigo Acute otitis externa of right ear Acute otitis media, right Stroke GERD (gastroesophageal reflux disease) Arthritis Allergies tested negative for allergies with Dr. May per patient Cervical spondylosis Seborrheic keratosis Surgical History Surgical History Carpal tunnel syndrome on both sides Cataract Hernia Previous back surgery Aftercare following left shoulder joint replacement surgery nov(2) Family History Family History Sibling Cancer Sibling Cancer Mother Diabetes mellitus Heart disease Cerebrovascular accident Father Hypertension Cancer Social History Social History Social History: 12/12/23 Declined SDND Smoking status: Never smoker Second hand tobacco smoke exposure: No Alcohol intake: current Drinks per week: 1 Substance use: never Substance use type: does not use Do You Feel Safe in your Home?: Yes Lack of Transportation: No Lack of Food: Never True Current Housing: I Have Housing Concerned About Future Housing: No Difficulty Paying Gas/Electric Bills: No Difficulty Paying for Meds: No Currently Unemployed: No Education: Grade School Difficulty w/ Childcare or Family Care: No Living arrangements: with family Additional living arrangements comments: Occupation/Education: retired Gender identity (if verbalized by the patient): Male Spiritual care concerns: No Agree to blood products: Yes Anes - Eval Final PreProcedure Day of Procedure 06/25/24 08:10 Patient weight: normal Heart: regular rate and rhythm Lungs: decreased breath sounds Airway: Mallampati scale class II Neurological: alert and oriented Last oral intake: >/= 8 hours ASA classification: III Emergent: no Anesthetic plan: proceed Anesthesia type and monitoring: general GIVS and standard monitoring Results Review: All pre-operative results and documents have been reviewed as part of the pre- operative evaluation. Informed Consent: The patient's anesthetic plan and its attendant risks and benefits were discussed with the patient/family/POA. Questions were solicited and answers provided to the satisfaction of the patient/family/POA.
[2024-06-25] MEDS: ceFAZolin 2 GM/D5W 50 ML 2 GM/50 ML BAG IVPB (08:48)
[2024-06-25] MEDS: LIDO 1%/EPINEPHRINE 1:100,000 50 ML VIAL 10 ML INFILTRATE (08:55)
[2024-06-25] MEDS: BUPivacaine HCL 0.5% 10 ML AMP INFILTRATE (08:55)
[2024-06-25] MEDS: BACITRACIN OINTMENT 15 GM TUBE 1 APPLIC TOPICAL (09:28)
[2024-06-25 09:36] VITALS: BP 114/62; PULSE 54; RESP 16; O2SAT 96
[2024-06-25 10:00] VITALS: BP 114/56; PULSE 54; RESP 16; O2SAT 95
--- NOTE | 2024-06-25 10:01 | SUR.PHASEII ---
MD Cornejo contacted to ask when patient should resume his Eliquis. Pt can resume Eliquis tomorrow morning per .
[2024-06-25 10:13] VITALS: BP 138/62; PULSE 60; RESP 16
== END 2024-06-25 10:23 | disposition home or self-care (01) ==
PROVIDERS: PCP Physician Assistant Medical; Visit Provider Plastic Surgery
PROC: 01N54ZZ Release Median Nerve, Percutaneous Endoscopic Approach (ICD-10-PCS; CPT 29848; principal; 2024-06-25 09:00)
DX: G56.01 Carpal tunnel syndrome, right upper limb (principal); G56.21 Lesion of ulnar nerve, right upper limb; K21.9 Gastro-esophageal reflux disease without esophagitis; I48.92 Unspecified atrial flutter; G62.9 Polyneuropathy, unspecified; M45.2 Ankylosing spondylitis of cervical region; M48.02 Spinal stenosis, cervical region; M48.061 Spinal stenosis, lumbar region without neurogenic claudication; M43.02 Spondylolysis, cervical region; M06.4 Inflammatory polyarthropathy; L82.1 Other seborrheic keratosis; Z79.01 Long term (current) use of anticoagulants; Z79.891 Long term (current) use of opiate analgesic; Z98.890 Other specified postprocedural states; Z98.1 Arthrodesis status; Z86.73 Personal history of transient ischemic attack (TIA), and cerebral infarction without residual deficits; Z80.9 Family history of malignant neoplasm, unspecified; Z82.49 Family history of ischemic heart disease and other diseases of the circulatory system
CPT/HCPCS: 64718; 64721; 15736; J0690; J2003; J2004; J2704; J3010; J7120